=== PATIENT | female | born 1940 | race Caucasian/White ===

== ENCOUNTER 2021-08-01 09:17 | Outpatient (CLI) | payer MEDICARE | END 2021-08-01 09:18 | disposition home or self-care (01) | LOC: CSHMAMMO 09:17 | PROVIDERS: ATTEND Internal Medicine | DX: Z12.31 Encounter for screening mammogram for malignant neoplasm of breast (principal); Z80.3 Family history of malignant neoplasm of breast | CPT/HCPCS: 77063; 77067 ==